=== PATIENT | female | born 1965 | race African-American/Black ===

== ENCOUNTER 2017-08-21 16:40 | Emergency (ER) | payer MEDICAID ==
[~2017-08-21] VITALS: Ht 175.3 cm; Wt 118.0 kg
[2017-08-21] MEDS ORDERED: IBUPROFEN 600MG TABLET PO ONE (17:30)
[2017-08-21 18:15] VITALS: BP 142/88
== END 2017-08-21 19:04 | disposition home or self-care (01) ==
LOC: ER 19:01
DX: S90.00XA Contusion of unspecified ankle, initial encounter (principal); I10 Essential (primary) hypertension; W22.8XXA Striking against or struck by other objects, initial encounter; Y93.89 Activity, other specified; Y92.9 Unspecified place or not applicable
CPT/HCPCS: 29515; 73610; 73630; 99284; Z7610